=== PATIENT | female | born 1950 | race Caucasian/White ===

== ENCOUNTER → 2022-06-26 12:16 | Outpatient (CLI) | payer MEDICARE, SELFPAY ==
--- NOTE | ~2022-06-26 | MR_ITS ---
EXAMINATION: MR hip RT wo con DATE: 06/26/2022 13:11 INDICATION: Right hip pain TECHNIQUE: Magnetic resonance imaging (MRI) of the right hip was performed without intravenous contr ast. Sequences included full-field axial PD-weighted FS FSE and T1-weighted FSE, coronal of the pelvi s with PD-weighted FS FSE, T2-weighted FSE and T1-weighted FSE, small field of view of the right hip with axial PD-weighted FS FSE, sagittal PD-weighted FS FSE, coronal PD-weighted FS FSE and coronal T2 weighted FSE. Additional radial T1-weighted FGR oriented orthogonal to the acetabular rim were obt ained for evaluation of the labrum. COMPARISON: None FINDINGS: Bones/labrum/cartilage: Metallic magnetic field artifact associated with bilateral vertical jeff and pedicle screw fixation fo r posterior spinal fusion at L4-L5. Mild lumbar dextrocurvature. Alignment is otherwise normal. Moder ate to severe left-sided predominant disc height loss at L2-L3 with associated fibrovascular degenera tive endplate changes. Likely osteoarthritis related mild subarticular marrow edema at the inferior a spect of the left sacroiliac joint. Bone marrow signal is otherwise normal. No fracture, avascular ne crosis or pathologic marrow replacing process. Mild osteoarthritis at the right hip with nonuniform j oint space narrowing with posterior predominant partial-thickness cartilage loss without degenerative subchondral changes. Small marginal ossified swelling the right acetabulum partially replacing the o therwise normal-appearing labrum. Fluid: Symmetric physiologic amount of fluid within both hip joints. Soft tissues: Normal and symmetric muscle bulk and signal in the pelvis and visualized proximal thighs. The iliopso as and gluteal tendons are normal. Complete avulsion of the conjoined biceps femoris and semitendinos us tendons with 3-4 cm distal retraction from the right ischial tuberosity. There is also a partial a vulsion of the semimembranosus tendon. Small fluid collection at the site of avulsion. Limited evalua tion of visceral organs of the pelvis is unremarkable. No pathologically enlarged pelvic/inguinal ly mphadenopathy. IMPRESSION: 1. Complete avulsion and 3-4 similar distal retraction of the right biceps femoris and semitendinosus tendons and partial avulsion of the semimembranosus tendon from the right ischial tuberosity. 2. Mild right hip osteoarthritis. 3. Lumbar spondylosis, moderate to severe at L2-L3 and with a cemented posterior spinal fusion at L4- L5. Reviewed, dictated and finalized at location A. IMPRESSION: 1. Complete avulsion and 3-4 similar distal retraction of the right biceps femo ris and semitendinosus tendons and partial avulsion of the semimembranosus tend on from the right ischial tuberosity. 2. Mild right hip osteoarthritis. 3. Lumbar spondylosis, moderate to severe at L2-L3 and with a cemented posterio r spinal fusion at L4-L5.
== END ==
PROVIDERS: PCP Family Medicine; Visit Provider Orthopaedic Surgery
DX: M25.551 Pain in right hip (principal); S76.091A Other specified injury of muscle, fascia and tendon of right hip, initial encounter; M16.11 Unilateral primary osteoarthritis, right hip; M47.816 Spondylosis without myelopathy or radiculopathy, lumbar region; Z98.1 Arthrodesis status
CPT/HCPCS: 73721